=== PATIENT | male | born 1950 | race Caucasian/White ===

== ENCOUNTER 2018-01-03 00:48 | Emergency (ER) | payer OTHER ==
[2018-01-03 02:15] VITALS: BP 137/82
== END 2018-01-03 02:15 | disposition home or self-care (01) ==
LOC: ED 00:48
DX: S39.012A Strain of muscle, fascia and tendon of lower back, initial encounter (principal); Y93.89 Activity, other specified; Y92.89 Other specified places as the place of occurrence of the external cause; Y99.8 Other external cause status